=== PATIENT | female | born 1970 | race Two or more races ===

== ENCOUNTER 2021-07-17 08:46 | Outpatient (CLI) | payer OTHER ==
[~2021-07-17 08:46] MED LIST: PRENATAL1 TAB PO
== END 2021-07-17 09:03 | disposition home or self-care (01) ==
LOC: MRI 08:46
DX: M50.10 Cervical disc disorder with radiculopathy, unspecified cervical region (principal); M54.5 Low back pain; M25.511 Pain in right shoulder; M25.512 Pain in left shoulder; Z11.51 Encounter for screening for human papillomavirus (HPV); Z12.4 Encounter for screening for malignant neoplasm of cervix
CPT/HCPCS: 72141; 72146